=== PATIENT | female | born 2000 | race Caucasian/White ===

== ENCOUNTER 2019-01-15 00:10 | Emergency (ER) | payer OTHER ==
[~2019-01-15] VITALS: Ht 157.5 cm; Wt 49.0 kg
[2019-01-15 00:15] VITALS: BP 135/88
--- NOTE | 2019-01-15 01:30 | NUR ---
18 Y/O FEMALE BIB SELF REPORTS URINATION FOR THE PAST WEEK. STATES IT IS GETTING WORSE AND SHE IS PEEING OFTEN AND SMALL AMOUNTS. STATES SHE HAS PRESSURE IN HER LOWER ABDOMEN. NO PAIN AT THIS TIME. PATIENT STATES, 'IT'S MORE DISCOMFORT THAN PAIN". HESITANCY AND URGENCY NOTED. ERMD MADE AWARE OF STATUS. SIDE RAILSX1. PMH: DENIES RX:DENIES ALLERGIES:VANCOMYCIN
[2019-01-15] MEDS ORDERED: CEPHALEXIN 500 MG CAP PO ONE (03:00)
[2019-01-15 03:50] VITALS: BP 121/83
== END 2019-01-15 03:50 | disposition home or self-care (01) ==
LOC: MED 00:10
DX: N39.0 Urinary tract infection, site not specified (principal); Z88.1 Allergy status to other antibiotic agents
CPT/HCPCS: 81002; 81025; 99283